=== PATIENT | female | born 1950 | race Caucasian/White ===

== ENCOUNTER 2019-02-04 13:09 | Day surgery (SDC) | payer MEDICARE, OTHER ==
[~2019-02-04] VITALS: Ht 149.9 cm; Wt 56.1 kg
[2019-02-04 14:11] VITALS: Ht 149.9 cm; Wt 56.1 kg
[2019-02-04] MEDS ORDERED: CARVEDILOL (14:16)
[2019-02-04] MEDS ORDERED: HCTZ (14:17)
[2019-02-04] MEDS ORDERED: NAPROXEN (14:17)
[2019-02-04 14:58] VITALS: BP 137/65; PULSE 62; RESP 16
[2019-02-04] MEDS ORDERED: LIDOCAINE 4% SOLUTION 50 ML BTL ONE (15:04)
[2019-02-04] MEDS ORDERED: MIDAZOLAM 1 MG/ML 2 ML INJ ONE (15:25)
[2019-02-04] MEDS ORDERED: FENTAnyl 50 MCG/ML VIAL ONE (15:26)
== END 2019-02-04 16:23 | disposition home or self-care (01) ==
LOC: GIL 13:09
PROVIDERS: ATTEND Internal Medicine
DX: K44.9 Diaphragmatic hernia without obstruction or gangrene (principal); K29.30 Chronic superficial gastritis without bleeding; I10 Essential (primary) hypertension
CPT/HCPCS: 43239; 88305; 88312; J2250; J3010